=== PATIENT | female | born 1995 | race Caucasian/White ===

== ENCOUNTER 2019-01-17 08:34 | Inpatient (IN) | payer OTHER ==
[~2019-01-17] VITALS: Ht 154.9 cm; Wt 47.6 kg
[2019-01-17] MEDS ORDERED: NIFE60TA3 PO (13:20)
[2019-01-17] MEDS ORDERED: INDOMETHACIN50 MG PO (13:20)
[2019-01-17] MEDS ORDERED: PRENATAL TABLE1 EACH PO (13:21)
[2019-01-17] MEDS ORDERED: HUMULIN N100 UNIT/2 SUBCUTANEO (13:21)
[2019-01-17] MEDS ORDERED: HUMALOG100 UNIT/1 SUBCUTANEO (13:23)
== END 2019-01-20 15:34 | disposition home or self-care (01) | DRG 832 ==
LOC: LDR 08:34
PROVIDERS: ADMIT Specialist
PROC: 4A1HXCZ Monitoring of Products of Conception, Cardiac Rate, External Approach (ICD-10-PCS; principal; 2019-01-17)
DX: O47.02 False labor before 37 completed weeks of gestation, second trimester (principal); O24.012 Pre-existing type 1 diabetes mellitus, in pregnancy, second trimester; O21.1 Hyperemesis gravidarum with metabolic disturbance; Z79.4 Long term (current) use of insulin; E10.9 Type 1 diabetes mellitus without complications

== ENCOUNTER → 2019-01-17 | Emergency (ER) | payer OTHER ==
[~2019-01-17] MED LIST: HUMALOG100 UNIT/1 SUBCUTANEO; HUMULIN N100 UNIT/2 SUBCUTANEO; INDOMETHACIN50 MG PO; NIFE60TA3 PO; PRENATAL TABLE1 EACH PO
== END | disposition left against medical advice (07) ==
LOC: ER 07:23
DX: Z53.20 Procedure and treatment not carried out because of patient's decision for unspecified reasons (principal)

== ENCOUNTER 2019-04-26 17:55 | Inpatient (IN) | payer OTHER ==
[~2019-04-26] VITALS: Ht 157.5 cm; Wt 3.2 kg
[2019-04-27] MEDS ORDERED: ONETOUCH VERIO1 EACH (09:37)
[2019-04-27] MEDS ORDERED: NIFEDIPINE ER60 M1 (09:39)
== END 2019-05-05 15:24 | disposition home or self-care (01) | DRG 783 ==
LOC: LDR 17:55 → OB/GYN 05-02 10:11
PROVIDERS: ADMIT Specialist
PROC: 4A1HXCZ Monitoring of Products of Conception, Cardiac Rate, External Approach (ICD-10-PCS; 2019-04-26)
PROC: BY4FZZZ Ultrasonography of Third Trimester, Single Fetus (ICD-10-PCS; 2019-04-29)
PROC: 0UB70ZZ Excision of Bilateral Fallopian Tubes, Open Approach (ICD-10-PCS; 2019-05-02)
PROC: 10D00Z1 Extraction of Products of Conception, Low, Open Approach (ICD-10-PCS; principal; 2019-05-02 07:45)
DX: O82 Encounter for cesarean delivery without indication (principal); O60.14X0 Preterm labor third trimester with preterm delivery third trimester, not applicable or unspecified; O24.414 Gestational diabetes mellitus in pregnancy, insulin controlled; O34.211 Maternal care for low transverse scar from previous cesarean delivery; O99.013 Anemia complicating pregnancy, third trimester; D50.8 Other iron deficiency anemias; O40.3XX0 Polyhydramnios, third trimester, not applicable or unspecified; Z3A.34 34 weeks gestation of pregnancy; Z37.0 Single live birth; Z30.2 Encounter for sterilization; Z22.330 Carrier of Group B streptococcus